=== PATIENT | male | born 1990 | race Caucasian/White ===

== ENCOUNTER → 2021-03-06 13:54 | Outpatient (CLI) | payer OTHER, SELFPAY ==
[2021-03-06 15:07] LABS: Absolute Lymphocyte Count 1.75 X10^3/uL (0.83-4.51); Absolute Neutrophil Count 5.5 X10^3/uL (2.0-7.7); Basophil# 0.03 X10^3/uL; Basophil% 0.4 % (0-1); Eosinophil# 0.12 X10^3/uL; Eosinophils% 1.5 % (0-5); Hematocrit 45.2 % (40-54); Hemoglobin 15.4 g/dL (13.0-16.5); Lymphocyte # 1.75 X10^3/ul (0.83-4.51); Lymphocyte % 21.6 % (19-41); Mean Corp Hgb Conc 34.1 g/dL (32-36); Mean Corpuscular Hgb 28.9 pg (27.0-32.0); Mean Corpuscular Volume 84.8 fL (80-94); Mean Platelet Vol. 10.2 fl (6.2-12.0); Monocyte# 0.68 X10^3/uL; Monocyte% 8.4 % (0-10); NRBC Flagged by Analyzer 0 % (0-5); Neutrophil # 5.49 X10^3/uL (2.7-7.7); Neutrophil % 67.6 % (47-70); Platelet Count 258 K/mm3 (150-450); RBC Distribution Width CV 12.4 % (11.6-14.6); RBC Distribution Width SD 37.7 fl (35.1-43.9); Red Blood Count 5.33 M/mm3 (4.6-6.2); White Blood Count 8.1 K/mm3 (4.4-11.0)
[2021-03-06 15:14] LABS: ALB/GLOB Ratio 1.1 RATIO (0.9-2.4); AST(SGOT) 18 U/L (15-37); Alanine Aminotransfer ALT/SGPT 34 U/L (16-61); Albumin, Serum 3.9 g/dL (3.2-5.0); Alkaline Phosphatase 98 U/L (45-117); Anion Gap 4 (5-15); BUN 17 mg/dL (7-18); Chloride 107 mmol/L (98-107); Cholesterol 235 mg/dL (200); Creatinine, Serum 1.06 mg/dL (0.70-1.30); EST Glomerular Filtration Rate 88 mL/min (>60); Est Glom Filt Rate - Afr Amer 106 mL/min (>60); Globulin 3.7 g/dL (2.2-4.2); Glucose 94 mg/dL (74-106); High Density Lipoprotein 43 mg/dL; Potassium 4.1 mmol/L (3.5-5.1); Protein, Total 7.6 g/dL (6.4-8.2); Sodium Level 139 mmol/L (136-145); Triglycerides 321 mg/dL; Very Low Density Lipoprotein 64 mg/dL (5-40)
== END ==
PROVIDERS: PCP Internal Medicine; Referring Provider Internal Medicine; Visit Provider Internal Medicine
DX: Z00.00 Encounter for general adult medical examination without abnormal findings (principal)
CPT/HCPCS: 36415; 80053; 80061; 85025

== ENCOUNTER → 2023-10-26 | Outpatient (CLI) | payer OTHER, SELFPAY ==
--- NOTE | 2023-10-26 | VAS_PTH ---
PATIENT: ALBAN KRAMER [facility]: [facility][id number] AGE/SX: 32/M ROOM: RE10/26/[address]: Dr. Nahid Lira MD : 1990 BED: DIS: 10/26/2023 SPEC #: [id number] RECD: 10/26/23 15:39 STATUS: HESHAM REJennifer #: [id number] FERNANDA: 10/26/23 00:[address]: Nahid Lira DEPT: SURGICAL PATHOLOGY RECD BY: Milagro Wilcox ENTERED: 10/27/23 07:10 SP TYPE: VAS OTHR DR: Dr. Janelle Cormier MD Tissues: A - Vas deferens, NOS B - Vas deferens, NOS Procedures: Surgery Specimen Level II HEADER OPERATION: Bilateral partial vasectomy PRE-OP DIAGNOSIS: Sterilization TISSUE SUBMITTED: A- Right vas deferens, B- Left vas deferens MICROSCOPIC DIAGNOSIS A. Right vas deferens, segmental vasectomy: Complete cross-section of vas deferens with no pathologic change. B. Left vas deferens, segmental vasectomy: Complete cross-section of vas deferens with no pathologic change. AM: 10/28/2023 MICROSCOPIC DESCRIPTION Slides are reviewed. GROSS DESCRIPTION A - Received is one container designated Right vas deferens. The specimen consists of a tubular segment of sandoval soft tissue measuring 0.7 cm in length and 0.2 cm in diameter. The specimen is sectioned and submitted entirely in one cassette. B - Received is one container designated Left vas deferens. The specimen consists of a tubular segment of sandoval soft tissue measuring 1.0 cm in length and 0.2 cm in diameter. The specimen is sectioned and submitted entirely in one cassette. / SJ: 10/27/2023 TC:4 CPT: 35063 x2
== END | disposition home or self-care (01) ==
LOC: LABSPEC 16:28
PROVIDERS: PCP Internal Medicine; Referring Provider Surgery; Visit Provider Surgery
DX: Z30.2 Encounter for sterilization (principal)
CPT/HCPCS: 88302

== ENCOUNTER → 2023-12-02 | Outpatient (CLI) | payer OTHER, SELFPAY ==
--- NOTE | 2023-12-02 | FLU_PTH ---
PATIENT: ALBAN KRAMER [facility]#:[id number] AGE/SX: 33/M ROOM: RE12/02/[address]: Dr. Nahid Lira MD : 1990 BED: DIS: 12/02/2023 SPEC #: [id number] RECD: 12/02/23 15:00 STATUS: HESHAM SHALA #: [id number] FERNANDA: 12/02/23 00:[address]: Nahid Lira DEPT: CYTOLOGY RECD BY: Milagro Wilcox ENTERED: 12/03/23 10:17 SP TYPE: Fluid OTHR DR: Dr. Janelle Cormier MD Tissues: Cytologic material, NOS Procedures: Special Stain Group II Surgery Specimen Level IV Cytospin Fluid HEADER OPERATION: Post vasectomy PRE-OP DIAGNOSIS: Post vasectomy status TISSUE SUBMITTED: Seminal fluid for cytology DIAGNOSIS CYTOLOGY Seminal fluid for cytology (cytospin): No spermatozoa identified. AM.mr 12/03/2023 CYTOLOGY STUDY Slides are reviewed. CYTOLOGY GROSS Received is 0.5 ml of viscous fluid labeled with the patient's name and and designated per the requisition as Seminal fluid. Submitted for cytology preparation including cell block. 12/03/2023 TC:5 CPT: 19315,85230
[2023-12-02 16:34] LABS: Cytology, Semen SEE PATHOLOGY REPORT
== END | disposition home or self-care (01) ==
LOC: LABSPEC 15:50
PROVIDERS: PCP Internal Medicine; Referring Provider Surgery; Visit Provider Surgery
DX: Z30.2 Encounter for sterilization (principal)
CPT/HCPCS: 88108; 88305; 88313

== ENCOUNTER → 2023-12-09 | Outpatient (CLI) | payer OTHER, SELFPAY ==
--- NOTE | 2023-12-09 07:30 | CYSPIN_PTH ---
PATIENT: ALBAN KRAMER [facility][id number] AGE/SX: 33/M ROOM: RE12/09/[address]: Dr. Nahid Lira MD : 1990 BED: DIS: 12/09/2023 SPEC #: [id number] RECD: 12/10/23 08:01 STATUS: HESHAM SHALA #: [id number] FERNANDA: 12/09/23 07:[address]: Nahid Lira DEPT: CYTOLOGY RECD BY: Daniella Estrada ENTERED: 12/10/23 08:02 SP TYPE: CYSPIN FL OTHR DR: Dr. Janelle Cormier MD Tissues: Cytologic material, NOS Procedures: Pap Stain (control) Special Stain Group II Cytospin Fluid HEADER OPERATION: Post vasectomy PRE-OP DIAGNOSIS: Post vasectomy status TISSUE SUBMITTED: Seminal fluid for cytology DIAGNOSIS CYTOLOGY Seminal fluid for cytology, post vasectomy (cytospin): Spermatozoa present. See comment. 12/10/2023 COMMENT Clinical correlation and appropriate follow up are necessary. CYTOLOGY STUDY Slides are reviewed. CYTOLOGY GROSS Received is 3 ml of thick cloudy-opaque mucoidy fluid labeled with the patient's name and and designated per the requisition as Seminal fluid. Submitted for cytology preparation. 12/10/2023 TC:5 CPT: 62274
[2023-12-09 15:47] LABS: Cytology, Semen SEE PATHOLOGY REPORT
== END | disposition home or self-care (01) ==
LOC: LABSPEC 15:38
PROVIDERS: PCP Internal Medicine; Referring Provider Surgery; Visit Provider Surgery
DX: Z30.2 Encounter for sterilization (principal)
CPT/HCPCS: 88108; 88313

== ENCOUNTER → 2023-12-28 | Outpatient (CLI) | payer OTHER, SELFPAY ==
--- NOTE | 2023-12-28 | CYSPIN_PTH ---
PATIENT: ALBAN KRAMER LOC: [facility] U#:[id number] AGE/SX: 33/M ROOM: RE12/28/[address]: Dr. Nahid Lira MD : 1990 BED: DIS: 12/28/2023 SPEC #: [id number] RECD: 12/28/23 16:12 STATUS: HESHAM REJennifer #: [id number] FERNANDA: 12/28/23 00:[address]: Nahid Lira DEPT: CYTOLOGY RECD BY: Milagro Wilcox ENTERED: 12/29/23 11:04 SP TYPE: CYSPIN FL OTHR DR: Dr. Janelle Cormier MD Tissues: Cytologic material, NOS Procedures: Pap Stain (control) Special Stain Group II Cytospin Fluid HEADER OPERATION: Post vasectomy PRE-OP DIAGNOSIS: Post vasectomy status TISSUE SUBMITTED: Seminal fluid for cytology DIAGNOSIS CYTOLOGY Seminal fluid for cytology (cytospin): No spermatozoa are identified. AM. 12/29/2023 CYTOLOGY STUDY Slides are reviewed. CYTOLOGY GROSS Received is <1 ml of white-viscous fluid labeled with the patient's name and and designated per the requisition as Seminal fluid. Submitted for cytology preparation including cell block. Mr 12/29/2023 TC:5 CPT: 45988
[2023-12-28 16:13] LABS: Cytology, Semen SEE PATHOLOGY REPORT
== END | disposition home or self-care (01) ==
LOC: LABSPEC 16:01
PROVIDERS: PCP Internal Medicine; Referring Provider Surgery; Visit Provider Surgery
DX: Z30.2 Encounter for sterilization (principal)
CPT/HCPCS: 88108; 88313

== ENCOUNTER → 2023-12-31 | Outpatient (CLI) | payer OTHER, SELFPAY ==
--- NOTE | 2023-12-31 | FLU_PTH ---
PATIENT: ALBAN KRAMER LOC: [facility]#:[id number] AGE/SX: 33/M ROOM: RE12/31/[address]: Dr. Nahid Lira MD : 1990 BED: DIS: 12/31/2023 SPEC #: [id number] RECD: 12/31/23 13:43 STATUS: HESHAM REQ #: [id number] FERNANDA: 12/31/23 00:[address]: Nahid Lira DEPT: CYTOLOGY RECD BY: Milagro Wilcox ENTERED: 12/31/23 13:44 SP TYPE: Fluid OTHR DR: Dr. Janelle Cormier MD Tissues: Cytologic material, NOS Procedures: Special Stain Group II Surgery Specimen Level IV Cytospin Fluid HEADER OPERATION: Post vasectomy PRE-OP DIAGNOSIS: Post vasectomy status TISSUE SUBMITTED: Seminal fluid for cytology DIAGNOSIS CYTOLOGY Seminal fluid for cytology (cytospin): No spermatozoa identified. AM.mr 01/01/2024 CYTOLOGY STUDY Slides are reviewed. CYTOLOGY GROSS Received is 2 ml of opaque viscous fluid labeled with the patient's name and and designated per the requisition as Seminal fluid. Submitted for cytology preparation including cell block. 12/31/2023 TC:5 CPT: 84992,84926
[2023-12-31 09:59] LABS: Cytology, Semen SEE PATHOLOGY REPORT
== END | disposition home or self-care (01) ==
LOC: LABSPEC 09:50
PROVIDERS: PCP Internal Medicine; Referring Provider Surgery; Visit Provider Surgery
DX: Z30.2 Encounter for sterilization (principal)
CPT/HCPCS: 88108; 88305; 88313